=== PATIENT | male | born 1990 | race African-American/Black ===

== ENCOUNTER 2019-04-09 16:57 | Inpatient (IN) | payer MEDICARE, MEDICAID ==
[~2019-04-09] VITALS: Ht 180.3 cm; Wt 91.2 kg
[2019-04-09] MEDS ORDERED: CLINDAMYCIN 600 MG in DEXTROSE 5% WATER 50 ML IV ONE (19:30)
[2019-04-09] MEDS ORDERED: SODIUM CHLORIDE 0.9% 1000ML BAG (SEPSIS BOLUS) IV ONE (19:30)
[2019-04-09] MEDS ORDERED: ONDANSETRON HCL 4MG/2ML INJ IV STA (19:33)
[2019-04-09] MEDS ORDERED: MORPHINE SULFATE 4 MG/ML CPJ (NOT FOR IM USE) IV STA (19:33)
[2019-04-09] MEDS ORDERED: TETANUS, DIPHTHERIA, PERTUSSIS VAC/PF 0.5ML (>7YR OLD) IM ONE (19:45)
[2019-04-09 20:03] LABS: HEMOGLOBIN. 14.1 g/dL (14.0-18.0); MEAN CORPUSCULAR HEMOGLOBIN 27.3 pg (28.0-32.0); PLATELET 298 x1000/uL (130-400); RED BLOOD CELL COUNT 5.18 mill/uL (4.7-6.1); RED CELL DISTRIBUTION WIDTH 12.8 % (11.6-14.6)
[2019-04-09 20:07] LABS: CHLORIDE 102 mEq/L (98-107)
[2019-04-09] MEDS ORDERED: CLINDAMYCIN 600MG PREMIX 50 ML IV SCH (20:15)
[2019-04-09 22:35] VITALS: BP 119/76
[2019-04-09] MEDS ORDERED: NA PHOS,M-B/NA PHOS,DI-BA ENEMA 118ML PR PRN (23:45)
[2019-04-09] MEDS ORDERED: ACETAMINOPHEN 650MG/20.3ML UDC GT PRN (23:45)
[2019-04-09] MEDS ORDERED: ONDANSETRON HCL 4MG/2ML INJ IV PRN (23:45)
[2019-04-09] MEDS ORDERED: VANCOMYCIN 1 G PREMIX 200 ML IV SCH (23:45)
[2019-04-09] MEDS ORDERED: ACETAMINOPHEN 650MG SUPP PR PRN (23:45)
[2019-04-09] MEDS ORDERED: MAGNESIUM/ALUMINUM HYDROXIDE/SIMETHICONE 30ML UDC PO PRN (23:45)
[2019-04-09] MEDS ORDERED: DEXTROSE 50% WATER 50ML SYRINGE IV PRN (23:45)
[2019-04-09] MEDS ORDERED: DIPHENHYDRAMINE 50MG/ML VIAL IV PRN (23:45)
[2019-04-09] MEDS ORDERED: GUAIFENESIN 200MG/10ML SUGAR FREE UDC PO PRN (23:45)
[2019-04-09] MEDS ORDERED: IPRATROPIUM/ALBUTEROL 0.5-3(2.5)MG/3ML NEB HHN PRN (23:45)
[2019-04-09] MEDS ORDERED: HYDROCODONE/ACETAMINOPHEN 10/325MG TABLET PO PRN (23:45)
[2019-04-09] MEDS ORDERED: DOCUSATE SODIUM 100MG CAPSULE PO PRN (23:45)
[2019-04-10] VITALS (7 sets, daily range): BP systolic 119–145; BP diastolic 66–94
[2019-04-10 00:07] LABS: PLATELET ESTIMATE NORMAL
[2019-04-10] MEDS ORDERED: METF-416 PO (00:15)
[2019-04-10] MEDS ORDERED: EMPA25TA PO (00:15)
[2019-04-10] MEDS ORDERED: ZONI100C45 PO (00:15)
[2019-04-10] MEDS ORDERED: ALBU2.5V13 IH (00:15)
[2019-04-10] MEDS ORDERED: CHOL20004 PO (00:15)
[2019-04-10] MEDS ORDERED: OLME40TA18 PO (00:15)
[2019-04-10] MEDS ORDERED: SITA100T11 PO (00:15)
[2019-04-10] MEDS ORDERED: [UNRECOGNIZED DRUG - OTHER] BOTHEYE (00:15)
[2019-04-10] MEDS ORDERED: NIFE10CA PO (00:15)
[2019-04-10] MEDS ORDERED: VANCOMYCIN 1 G PREMIX 200 ML IV SCH (03:00)
[2019-04-10] MEDS: CEFTRIAXONE 1 G PREMIX 50 ML IV SCH (06:29)
[2019-04-10] MEDS: BLOOD SUGAR DIAGNOSTIC STRIP TEST SCH ×4 (06:30→21:02)
[2019-04-10] MEDS: SODIUM CHLORIDE 0.9% INJ 3ML FLUSH IVF SCH ×3 (06:30→22:15)
[2019-04-10] MEDS: INSULIN LISPRO 100 UNITS/ML SUBCUT SCH ×4 (06:30→22:22)
[2019-04-10 07:08] LABS: BASOPHILS % 0.6 % (0.0-2.0); EOSINOPHILS % 0.3 % (0.0-5.0); HEMATOCRIT. 37.4 % (42.0-52.0); HEMOGLOBIN. 12.1 g/dL (14.0-18.0); LYMPHOCYTES % 10.6 % (20.0-50.0); MEAN CORPUSCULAR HEMOGLOBIN 26.8 pg (28.0-32.0); MEAN CORPUSCULAR VOLUME 82.7 fL (80.0-94.0); MEAN PLATELET VOLUME 8.9 fl (7.4-10.4); MONOCYTES % 12.2 % (2.0-8.0); NEUTROPHILS % 76.3 % (40.0-76.0); PLATELET 269 x1000/uL (130-400); RED BLOOD CELL COUNT 4.52 mill/uL (4.7-6.1); RED CELL DISTRIBUTION WIDTH 12.4 % (11.6-14.6)
[2019-04-10 07:34] LABS: CHLORIDE 107 mEq/L (98-107)
[2019-04-10 07:41] LABS: HDL CHOLESTEROL 56 mg/dL (40-59); LDL CHOLESTEROL 64 mg/dL (5-100)
[2019-04-10] MEDS: ENOXAPARIN 40MG/0.4ML SYR SUBCUT SCH (08:09)
[2019-04-10 09:25] LABS: CLARITY URINE CLEAR (CLEAR); COLOR URINE YELLOW (YELLOW); KETONES URINE 4+ (NEGATIVE); LEUKOCYTE ESTERASE URINE NEGATIVE (NEGATIVE); NITRITE URINE NEGATIVE (NEGATIVE); OCCULT BLOOD URINE TRACE (NEGATIVE); PH URINE 5.5 (4.5-8.0); PROTEIN URINE 1+ (NEGATIVE); SPECIFIC GRAVITY URINE 1.027 (1.005-1.030); UROBILINOGEN URINE 0.2 E.U./dL (0.2-1.0)
[2019-04-10 09:53] LABS: *AMPHETAMINES SCREEN URINE NEGATIVE (NEGATIVE)
[2019-04-10 09:57] LABS: *BENZODIAZEPINES SCREEN URINE NEGATIVE (NEGATIVE); *COCAINE SCREEN URINE NEGATIVE (NEGATIVE); METHADONE URINE SCREEN NEGATIVE (NEGATIVE)
[2019-04-10 09:58] LABS: *BARBITURATES SCREEN URINE NEGATIVE (NEGATIVE); CANNABINOID URINE SCREEN NEGATIVE (NEGATIVE); OPIATES URINE SCREEN PRESUMTIVE POSITIVE (NEGATIVE); PHENCYCLIDINE URINE SCREEN NEGATIVE (NEGATIVE)
[2019-04-10] MEDS: VANCOMYCIN 1250MG in DEXTROSE 5% WATER 250ML IV SCH ×2 (12:49→21:02)
[2019-04-10] MEDS: METFORMIN HCL 500MG TABLET PO SCH (22:00)
[2019-04-10] MEDS: ZONISAMIDE 100MG CAPSULE PO SCH (22:10)
[2019-04-11] VITALS: BP 144/94
[2019-04-11] MEDS: CEFTRIAXONE 1 G PREMIX 50 ML IV SCH (03:06)
[2019-04-11] MEDS: VANCOMYCIN 1250MG in DEXTROSE 5% WATER 250ML IV SCH ×2 (03:07→21:50)
[2019-04-11 04:00] VITALS: BP 144/95
[2019-04-11] MEDS: BLOOD SUGAR DIAGNOSTIC STRIP TEST SCH ×4 (06:38→21:00)
[2019-04-11] MEDS: SODIUM CHLORIDE 0.9% INJ 3ML FLUSH IVF SCH ×3 (06:38→21:50)
[2019-04-11 08:00] VITALS: BP 138/91
[2019-04-11] MEDS: METFORMIN HCL 500MG TABLET PO SCH ×2 (09:16→17:00)
[2019-04-11] MEDS: NIFEDIPINE XL 30MG TAB PO SCH (09:16)
[2019-04-11] MEDS: CHOLECALCIFEROL (D3) 1000 UNIT TABLET PO SCH (09:16)
[2019-04-11] MEDS: ENOXAPARIN 40MG/0.4ML SYR SUBCUT SCH (09:17)
[2019-04-11] MEDS: INSULIN LISPRO 100 UNITS/ML SUBCUT SCH ×4 (10:46→21:00)
[2019-04-11 12:00] VITALS: BP 149/96
[2019-04-11] MEDS ORDERED: ALBUTEROL (0.083%) 2.5MG/3ML NEB HHN PRN (13:00)
[2019-04-11] MEDS ORDERED: BUPIVACAINE HCL/PF 0.5% (5MG/ML) 10ML ONE (15:40)
[2019-04-11] MEDS ORDERED: BACITRACIN 50,000 UNITS/VIAL ONE (15:40)
[2019-04-11] MEDS ORDERED: LIDOCAINE HCL 1% 20ML VIAL (Pyxis) INJ ONE (15:40)
[2019-04-11] MEDS: CLONIDINE 0.1MG TABLET PO PRN (15:45)
[2019-04-11 16:00] VITALS: BP 160/114
[2019-04-11] MEDS ORDERED: GLYCOPYRROLATE 0.2 MG/ML 2ML VIAL ONE (16:36)
[2019-04-11] MEDS ORDERED: MIDAZOLAM HCL 2 MG/2 ML VIAL ONE (16:36)
[2019-04-11] MEDS ORDERED: SUCCINYLCHOLINE CHLORIDE 200MG/10ML IV ONE (16:36)
[2019-04-11] MEDS ORDERED: ONDANSETRON HCL 4MG/2ML INJ ONE (16:36)
[2019-04-11] MEDS ORDERED: LIDOCAINE HCL/PF 1% 10 MG/ML 5ML VIAL ONE (16:36)
[2019-04-11] MEDS ORDERED: METOCLOPRAMIDE HCL 10MG/2ML VIAL ONE (16:36)
[2019-04-11] MEDS ORDERED: PROPOFOL 200MG/20ML VIAL IV ONE (16:36)
[2019-04-11] MEDS ORDERED: FENTANYL CITRATE/PF 50MCG/ML 2ML VIAL ONE (16:36)
[2019-04-11] MEDS ORDERED: SODIUM CHLORIDE 0.9% 1,000 ML IV NR (17:07)
[2019-04-11] MEDS ORDERED: ONDANSETRON HCL 4MG/2ML INJ IV PRN (17:15)
[2019-04-11] MEDS ORDERED: HYDROMORPHONE HCL/PF 2MG/ML CPJ IV PRN (17:15)
[2019-04-11] MEDS ORDERED: MORPHINE SULFATE 2 MG/ML CPJ (NOT FOR IM USE) IV PRN (17:15)
[2019-04-11] MEDS ORDERED: HYDRALAZINE 20MG/ML VIAL IV NR (18:30)
[2019-04-11 20:00] VITALS: BP 119/80
[2019-04-11] MEDS: ZONISAMIDE 100MG CAPSULE PO SCH (21:50)
[2019-04-12] VITALS: BP 123/76
[2019-04-12 04:00] VITALS: BP 132/87
[2019-04-12] MEDS: CEFTRIAXONE 1 G PREMIX 50 ML IV SCH (04:26)
[2019-04-12] MEDS: SODIUM CHLORIDE 0.9% INJ 3ML FLUSH IVF SCH ×2 (06:58→13:29)
[2019-04-12] MEDS: BLOOD SUGAR DIAGNOSTIC STRIP TEST SCH ×4 (06:58→21:11)
[2019-04-12 08:00] VITALS: BP 136/88
[2019-04-12] MEDS: INSULIN LISPRO 100 UNITS/ML SUBCUT SCH ×4 (08:11→21:31)
[2019-04-12] MEDS: NIFEDIPINE XL 30MG TAB PO SCH (08:14)
[2019-04-12] MEDS: METFORMIN HCL 500MG TABLET PO SCH ×2 (08:14→17:29)
[2019-04-12] MEDS: VANCOMYCIN 1250MG in DEXTROSE 5% WATER 250ML IV SCH ×2 (08:17→20:21)
[2019-04-12] MEDS: JARDIANCE 25 MG PO SCH (08:17)
[2019-04-12] MEDS: ENOXAPARIN 40MG/0.4ML SYR SUBCUT SCH (08:17)
[2019-04-12] MEDS: CHOLECALCIFEROL (D3) 1000 UNIT TABLET PO SCH (09:10)
[2019-04-12] MEDS: JANUVIA 100MG TABLET PO SCH (11:43)
[2019-04-12 12:00] VITALS: BP 153/93
[2019-04-12 16:00] VITALS: BP 146/97
[2019-04-12] MEDS: ACETAMINOPHEN 325MG TABLET PO PRN (17:33)
[2019-04-12 20:00] VITALS: BP 149/71
[2019-04-12] MEDS: ZONISAMIDE 100MG CAPSULE PO SCH (20:21)
[2019-04-13] VITALS: BP 138/85
[2019-04-13] MEDS: SODIUM CHLORIDE 0.9% INJ 3ML FLUSH IVF SCH ×4 (01:37→22:00)
[2019-04-13] MEDS: CEFTRIAXONE 1 G PREMIX 50 ML IV SCH (02:58)
[2019-04-13] MEDS: HYDROCODONE/ACETAMINOPHEN 5/325MG TABLET PO PRN ×2 (03:26→16:38)
[2019-04-13 04:00] VITALS: BP 117/72
[2019-04-13] MEDS: BLOOD SUGAR DIAGNOSTIC STRIP TEST SCH ×4 (06:43→21:20)
[2019-04-13] MEDS ORDERED: LIDOCAINE HCL 1% 20ML VIAL (Pyxis) INJ ONE (07:16)
[2019-04-13 08:00] VITALS: BP 133/93
[2019-04-13] MEDS: ENOXAPARIN 40MG/0.4ML SYR SUBCUT SCH (08:18)
[2019-04-13] MEDS: METFORMIN HCL 500MG TABLET PO SCH ×2 (08:33→17:22)
[2019-04-13] MEDS: ASCORBIC ACID 250 MG TABLET PO SCH (08:33)
[2019-04-13] MEDS: ZINC SULFATE 220 MG ( 50 ) CAPSULE PO SCH (08:33)
[2019-04-13] MEDS: CHOLECALCIFEROL (D3) 1000 UNIT TABLET PO SCH (08:34)
[2019-04-13] MEDS: NIFEDIPINE XL 30MG TAB PO SCH ×2 (08:37→09:00)
[2019-04-13] MEDS: JARDIANCE 25 MG PO SCH (08:38)
[2019-04-13] MEDS: INSULIN LISPRO 100 UNITS/ML SUBCUT SCH ×4 (08:43→21:00)
[2019-04-13] MEDS: VANCOMYCIN 1250MG in DEXTROSE 5% WATER 250ML IV SCH ×2 (08:47→21:20)
[2019-04-13 12:00] VITALS: BP 156/94
[2019-04-13] MEDS: JANUVIA 100MG TABLET PO SCH (12:45)
[2019-04-13 16:00] VITALS: BP 151/101
[2019-04-13 20:00] VITALS: BP 150/88
[2019-04-13] MEDS: ZONISAMIDE 100MG CAPSULE PO SCH (21:20)
[2019-04-14] VITALS: BP 149/102
[2019-04-14 04:00] VITALS: BP 147/97
[2019-04-14] MEDS: CEFTRIAXONE 1 G PREMIX 50 ML IV SCH (04:46)
[2019-04-14] MEDS: BLOOD SUGAR DIAGNOSTIC STRIP TEST SCH ×4 (06:46→21:51)
[2019-04-14] MEDS: SODIUM CHLORIDE 0.9% INJ 3ML FLUSH IVF SCH ×3 (06:46→21:51)
[2019-04-14] MEDS: INSULIN LISPRO 100 UNITS/ML SUBCUT SCH ×4 (07:50→22:01)
[2019-04-14] MEDS: JARDIANCE 25 MG PO SCH ×2 (09:00→09:52)
[2019-04-14] MEDS: ASCORBIC ACID 250 MG TABLET PO SCH (09:53)
[2019-04-14] MEDS: NIFEDIPINE XL 30MG TAB PO SCH (09:53)
[2019-04-14] MEDS: ZINC SULFATE 220 MG ( 50 ) CAPSULE PO SCH (09:53)
[2019-04-14] MEDS: METFORMIN HCL 500MG TABLET PO SCH ×2 (09:53→17:46)
[2019-04-14] MEDS: ENOXAPARIN 40MG/0.4ML SYR SUBCUT SCH (09:53)
[2019-04-14] MEDS: VANCOMYCIN 1250MG in DEXTROSE 5% WATER 250ML IV SCH ×2 (09:55→21:51)
[2019-04-14] MEDS: CHOLECALCIFEROL (D3) 1000 UNIT TABLET PO SCH (09:55)
[2019-04-14 12:00] VITALS: BP 142/96
[2019-04-14] MEDS: JANUVIA 100MG TABLET PO SCH (13:09)
[2019-04-14] MEDS: HYDROCODONE/ACETAMINOPHEN 5/325MG TABLET PO PRN (14:11)
[2019-04-14 16:00] VITALS: BP 121/82
[2019-04-14 20:00] VITALS: BP 136/97
[2019-04-14] MEDS: ZONISAMIDE 100MG CAPSULE PO SCH (21:51)
[2019-04-15] VITALS (7 sets, daily range): BP systolic 118–175; BP diastolic 77–109
[2019-04-15] MEDS: CEFTRIAXONE 1 G PREMIX 50 ML IV SCH (04:42)
[2019-04-15] MEDS: CLONIDINE 0.1MG TABLET PO PRN ×3 (04:42→20:24)
[2019-04-15] MEDS: BLOOD SUGAR DIAGNOSTIC STRIP TEST SCH ×4 (06:44→20:14)
[2019-04-15] MEDS: SODIUM CHLORIDE 0.9% INJ 3ML FLUSH IVF SCH ×2 (06:44→13:11)
[2019-04-15] MEDS: INSULIN LISPRO 100 UNITS/ML SUBCUT SCH ×4 (07:50→20:15)
[2019-04-15] MEDS: CHOLECALCIFEROL (D3) 1000 UNIT TABLET PO SCH (09:37)
[2019-04-15] MEDS: ZINC SULFATE 220 MG ( 50 ) CAPSULE PO SCH (09:38)
[2019-04-15] MEDS: NIFEDIPINE XL 30MG TAB PO SCH (09:38)
[2019-04-15] MEDS: ASCORBIC ACID 250 MG TABLET PO SCH (09:38)
[2019-04-15] MEDS: METFORMIN HCL 500MG TABLET PO SCH ×2 (09:39→17:00)
[2019-04-15] MEDS: ENOXAPARIN 40MG/0.4ML SYR SUBCUT SCH (09:40)
[2019-04-15] MEDS: VANCOMYCIN 1250MG in DEXTROSE 5% WATER 250ML IV SCH ×2 (09:40→20:15)
[2019-04-15] MEDS: JARDIANCE 25 MG PO SCH ×2 (09:41→15:15)
[2019-04-15] MEDS: JANUVIA 100MG TABLET PO SCH (12:00)
[2019-04-15] MEDS: ACETAMINOPHEN 325MG TABLET PO PRN (15:08)
[2019-04-15] MEDS: ZONISAMIDE 100MG CAPSULE PO SCH (20:15)
[2019-04-16] VITALS: BP 159/108
[2019-04-16 04:00] VITALS: BP 137/94
[2019-04-16] MEDS: CEFTRIAXONE 1 G PREMIX 50 ML IV SCH (04:53)
[2019-04-16] MEDS: BLOOD SUGAR DIAGNOSTIC STRIP TEST SCH ×4 (07:34→21:00)
[2019-04-16] MEDS: INSULIN LISPRO 100 UNITS/ML SUBCUT SCH ×4 (07:50→21:00)
[2019-04-16 08:00] VITALS: BP 137/95
[2019-04-16] MEDS: JARDIANCE 25 MG PO SCH (09:00)
[2019-04-16] MEDS: ENOXAPARIN 40MG/0.4ML SYR SUBCUT SCH (09:00)
[2019-04-16] MEDS: CHOLECALCIFEROL (D3) 1000 UNIT TABLET PO SCH (09:00)
[2019-04-16] MEDS: METFORMIN HCL 500MG TABLET PO SCH ×2 (09:00→17:00)
[2019-04-16] MEDS: ASCORBIC ACID 250 MG TABLET PO SCH (09:00)
[2019-04-16] MEDS: ZINC SULFATE 220 MG ( 50 ) CAPSULE PO SCH (09:00)
[2019-04-16] MEDS: NIFEDIPINE XL 30MG TAB PO SCH (09:00)
[2019-04-16] MEDS: VANCOMYCIN 1250MG in DEXTROSE 5% WATER 250ML IV SCH ×2 (09:34→22:10)
[2019-04-16 12:00] VITALS: BP 138/81
[2019-04-16] MEDS: JANUVIA 100MG TABLET PO SCH (12:00)
[2019-04-16 16:05] VITALS: BP 156/104
[2019-04-16 19:28] LABS: EOSINOPHILS % 0.6 % (0.0-5.0); HEMATOCRIT. 45.4 % (42.0-52.0); HEMOGLOBIN. 14.7 g/dL (14.0-18.0); LYMPHOCYTES % 13.4 % (20.0-50.0); MEAN CORPUSCULAR HEMOGLOBIN 26.6 pg (28.0-32.0); MEAN CORPUSCULAR VOLUME 82.3 fL (80.0-94.0); MEAN PLATELET VOLUME 8.5 fl (7.4-10.4); MONOCYTES % 10.6 % (2.0-8.0); NEUTROPHILS % 74.4 % (40.0-76.0); PLATELET 360 x1000/uL (130-400); RED BLOOD CELL COUNT 5.52 mill/uL (4.7-6.1); RED CELL DISTRIBUTION WIDTH 13.1 % (11.6-14.6)
[2019-04-16 19:45] LABS: CHLORIDE 100 mEq/L (98-107)
[2019-04-16 20:00] VITALS: BP 134/96
[2019-04-16] MEDS: ZONISAMIDE 100MG CAPSULE PO SCH (22:10)
[2019-04-16] MEDS: SODIUM CHLORIDE 0.9% INJ 3ML FLUSH IVF SCH (22:10)
[2019-04-17] VITALS: BP 152/99
[2019-04-17] MEDS: CLONIDINE 0.1MG TABLET PO PRN (00:02)
[2019-04-17] MEDS: CEFTRIAXONE 1 G PREMIX 50 ML IV SCH (02:47)
[2019-04-17] MEDS: SODIUM CHLORIDE 0.9% INJ 3ML FLUSH IVF SCH ×4 (02:54→21:00)
[2019-04-17 04:00] VITALS: BP 141/98
[2019-04-17] MEDS: BLOOD SUGAR DIAGNOSTIC STRIP TEST SCH ×4 (06:48→20:50)
[2019-04-17] MEDS: INSULIN LISPRO 100 UNITS/ML SUBCUT SCH ×4 (07:50→20:57)
[2019-04-17 08:00] VITALS: BP 131/85
[2019-04-17] MEDS: ZINC SULFATE 220 MG ( 50 ) CAPSULE PO SCH (08:21)
[2019-04-17] MEDS: VANCOMYCIN 1250MG in DEXTROSE 5% WATER 250ML IV SCH ×2 (08:22→20:43)
[2019-04-17] MEDS: NIFEDIPINE XL 30MG TAB PO SCH (08:22)
[2019-04-17] MEDS: ASCORBIC ACID 250 MG TABLET PO SCH (08:22)
[2019-04-17] MEDS: METFORMIN HCL 500MG TABLET PO SCH ×2 (08:22→16:42)
[2019-04-17] MEDS: CHOLECALCIFEROL (D3) 1000 UNIT TABLET PO SCH (08:22)
[2019-04-17] MEDS: JARDIANCE 25 MG PO SCH (08:41)
[2019-04-17] MEDS: ENOXAPARIN 40MG/0.4ML SYR SUBCUT SCH (08:44)
[2019-04-17 12:00] VITALS: BP 136/95
[2019-04-17] MEDS: JANUVIA 100MG TABLET PO SCH (13:40)
[2019-04-17 16:00] VITALS: BP 120/83
[2019-04-17 20:00] VITALS: BP 133/95
[2019-04-17] MEDS: ZONISAMIDE 100MG CAPSULE PO SCH (20:43)
[2019-04-18] VITALS: BP 133/93
[2019-04-18 04:00] VITALS: BP 125/90
[2019-04-18] MEDS: SODIUM CHLORIDE 0.9% INJ 3ML FLUSH IVF SCH ×3 (05:19→20:43)
[2019-04-18] MEDS: BLOOD SUGAR DIAGNOSTIC STRIP TEST SCH ×4 (07:03→20:51)
[2019-04-18] MEDS: INSULIN LISPRO 100 UNITS/ML SUBCUT SCH ×4 (07:58→20:51)
[2019-04-18 08:00] VITALS: BP 142/96
[2019-04-18] MEDS: ENOXAPARIN 40MG/0.4ML SYR SUBCUT SCH (08:16)
[2019-04-18] MEDS: JARDIANCE 25 MG PO SCH (08:19)
[2019-04-18] MEDS: METFORMIN HCL 500MG TABLET PO SCH ×2 (08:19→16:31)
[2019-04-18] MEDS: ZINC SULFATE 220 MG ( 50 ) CAPSULE PO SCH (08:19)
[2019-04-18] MEDS: ASCORBIC ACID 250 MG TABLET PO SCH (08:20)
[2019-04-18] MEDS: CHOLECALCIFEROL (D3) 1000 UNIT TABLET PO SCH (08:23)
[2019-04-18] MEDS: NIFEDIPINE XL 30MG TAB PO SCH (08:29)
[2019-04-18] MEDS: LEVOFLOXACIN 500MG PREMIX 100 ML IV SCH (11:07)
[2019-04-18] MEDS: JANUVIA 100MG TABLET PO SCH (11:07)
[2019-04-18 12:00] VITALS: BP 123/92
[2019-04-18] MEDS ORDERED: LEVO500T2 MT (12:20)
[2019-04-18] MEDS ORDERED: CLIN150C14 MT (12:20)
[2019-04-18 16:00] VITALS: BP 132/79
[2019-04-18 20:00] VITALS: BP 128/92
[2019-04-18] MEDS: ZONISAMIDE 100MG CAPSULE PO SCH (20:39)
[2019-04-19] VITALS: BP 130/89
[2019-04-19 04:00] VITALS: BP 132/80
[2019-04-19] MEDS: SODIUM CHLORIDE 0.9% INJ 3ML FLUSH IVF SCH (06:00)
[2019-04-19] MEDS: BLOOD SUGAR DIAGNOSTIC STRIP TEST SCH (07:20)
[2019-04-19 08:00] VITALS: BP 130/92
[2019-04-19] MEDS: JARDIANCE 25 MG PO SCH (08:00)
[2019-04-19] MEDS: ENOXAPARIN 40MG/0.4ML SYR SUBCUT SCH (08:00)
[2019-04-19] MEDS: ZINC SULFATE 220 MG ( 50 ) CAPSULE PO SCH (08:02)
[2019-04-19] MEDS: METFORMIN HCL 500MG TABLET PO SCH (08:02)
[2019-04-19] MEDS: NIFEDIPINE XL 30MG TAB PO SCH (08:02)
[2019-04-19] MEDS: ASCORBIC ACID 250 MG TABLET PO SCH (08:02)
[2019-04-19] MEDS: CHOLECALCIFEROL (D3) 1000 UNIT TABLET PO SCH (08:03)
[2019-04-19] MEDS: INSULIN LISPRO 100 UNITS/ML SUBCUT SCH (08:14)
[2019-04-19 09:45] VITALS: BP 130/92
[2019-04-19] MEDS: LEVOFLOXACIN 500MG PREMIX 100 ML IV SCH (11:00)
== END 2019-04-19 11:53 | disposition home or self-care (01) | DRG 629 ==
LOC: ER 16:57 → 6EST 21:49 → ENRESERV 21:54
PROVIDERS: ADMIT Family Medicine; ATTEND Family Medicine
PROC: 0QBN0ZZ Excision of Right Metatarsal, Open Approach (ICD-10-PCS; principal; 2019-04-11)
PROC: 02HV33Z Insertion of Infusion Device into Superior Vena Cava, Percutaneous Approach (ICD-10-PCS; 2019-04-13)
PROC: B5181ZA Fluoroscopy of Superior Vena Cava using Low Osmolar Contrast, Guidance (ICD-10-PCS; 2019-04-13)
PROC: B548ZZA Ultrasonography of Superior Vena Cava, Guidance (ICD-10-PCS; 2019-04-13)
DX: E11.69 Type 2 diabetes mellitus with other specified complication (principal); E11.52 Type 2 diabetes mellitus with diabetic peripheral angiopathy with gangrene; L03.115 Cellulitis of right lower limb; I96 Gangrene, not elsewhere classified; M86.8X7 Other osteomyelitis, ankle and foot; E11.42 Type 2 diabetes mellitus with diabetic polyneuropathy; E11.621 Type 2 diabetes mellitus with foot ulcer; G40.909 Epilepsy, unspecified, not intractable, without status epilepticus; I10 Essential (primary) hypertension; E66.9 Obesity, unspecified; J45.909 Unspecified asthma, uncomplicated; J03.90 Acute tonsillitis, unspecified; E78.5 Hyperlipidemia, unspecified; Z88.0 Allergy status to penicillin; Z88.8 Allergy status to other drugs, medicaments and biological substances; Z83.3 Family history of diabetes mellitus; Z68.28 Body mass index [BMI] 28.0-28.9, adult; Z79.899 Other long term (current) drug therapy; Z98.42 Cataract extraction status, left eye; Z98.41 Cataract extraction status, right eye; Z79.84 Long term (current) use of oral hypoglycemic drugs
CPT/HCPCS: 36415; 36573; 71045; 73630; 73721; 76937; 80061; 80202; 80305; 81003; 82962; 83036; 83605; 84145; 85651; 86140; 87070; 87075; 87077; 87186; 90715; 93005; 93923; 99285; C1725; J0330; J0360; J0696; J1170; J1650; J1815; J1956; J2250; J2270; J2405; J2704; J2765; J3010; J3370; J3490; J7030; J7040; J7060